=== PATIENT | male | born 2000 | race Caucasian/White ===

== ENCOUNTER 2018-10-15 16:27 | Emergency (ER) | payer BC ==
[~2018-10-15] VITALS: Ht 177.8 cm; Wt 59.1 kg
[~2018-10-15 16:27] MED LIST: EPIN0.1516 IM; PRED15SO24 PO; RANI-320 PO
[2018-10-15] MEDS ORDERED: pilocarpine 2% ophthalmic drops 15ml RIGHTEYE ONE (16:45)
[2018-10-15] MEDS ORDERED: ERYT1OIN6 RIGHTEYE (17:34)
== END 2018-10-15 19:36 | disposition home or self-care (01) ==
LOC: ER 16:28
DX: S05.01XA Injury of conjunctiva and corneal abrasion without foreign body, right eye, initial encounter (principal); T15.91XA Foreign body on external eye, part unspecified, right eye, initial encounter; Z79.899 Other long term (current) drug therapy; W45.8XXA Other foreign body or object entering through skin, initial encounter; Y93.89 Activity, other specified; Y92.89 Other specified places as the place of occurrence of the external cause; Y99.8 Other external cause status
CPT/HCPCS: 99283